=== PATIENT | male | born 1990 | race Asian ===

== ENCOUNTER 2017-11-01 05:19 | Emergency (ER) | payer OTHER ==
[~2017-11-01] VITALS: Ht 170.2 cm; Wt 70.3 kg
[2017-11-01 06:22] LABS: POTASSIUM 3.7 mmol/L (3.6-5.2); SODIUM 138 mmol/L (136-145)
[2017-11-01 06:35] LABS: PLATELET COUNT 272 K/uL (142-355)
== END 2017-11-01 06:48 | disposition home or self-care (01) ==
LOC: ED 05:19
DX: R42 Dizziness and giddiness (principal)
CPT/HCPCS: 36415; 80053; 85027; 99283